=== PATIENT | female | born 1935 | race Caucasian/White ===

== ENCOUNTER 2016-07-26 21:08 | Emergency (ER) | payer MEDICARE ==
--- NOTE | 2016-07-26 22:21 | RAD ---
Name: ELADIA MANCINI Exam: Left knee Comparison: None Clinical history: Ground-level fall Findings: 4 views left knee are submitted. Bone density is within normal limits. There is moderate degenerative seas of the medial tibiofemoral joint space. There is mild degenerative disease of the patellofemoral joint. Small joint effusion is identified. Meniscal calcification is present. There is no fracture or dislocation. There is been prior vascular surgery. Impression: 1. Degenerative disease left knee 2. Small joint effusion 3. Prior vascular surgery
--- NOTE | 2016-07-26 22:22 | RAD ---
Name: ELADIA MANCINI Exam: Right knee Comparison: 07/28/2012 Clinical history: Ground-level fall Findings: 4 radiographs of the right knee are submitted. Bone density is within normal limits. There is been prior right knee arthroplasty. There is no evidence for fracture, dislocation or prosthetic loosening. Vascular calcifications are identified. Prepatellar soft tissue swelling is present Impression: 1. Prior right knee arthroplasty. There is no evidence for fracture, dislocation or prosthetic loosening 2. Prepatellar soft tissue swelling
[2016-07-26] MEDS ORDERED: ACETAMINOPHEN 500 MG TABLET ONE (23:20)
== END 2016-07-26 23:43 | disposition home or self-care (01) ==
LOC: ED 21:08
DX: S80.02XA Contusion of left knee, initial encounter (principal); S80.01XA Contusion of right knee, initial encounter; I48.91 Unspecified atrial fibrillation; I25.2 Old myocardial infarction; J44.9 Chronic obstructive pulmonary disease, unspecified; Z96.651 Presence of right artificial knee joint; Z79.01 Long term (current) use of anticoagulants; W18.30XA Fall on same level, unspecified, initial encounter; Y93.01 Activity, walking, marching and hiking; Y92.007 Garden or yard of unspecified non-institutional (private) residence as the place of occurrence of the external cause
CPT/HCPCS: 73564 ×2; 99283 ×2; A9270